=== PATIENT | female | born 1995 | race Caucasian/White ===

== ENCOUNTER 2019-12-03 02:45 | Inpatient (IN) | payer OTHER ==
[2019-12-03] MEDS ORDERED: ELECTROLYTE-148 SOLN 1,000 ML IV SCH (03:40)
[2019-12-03] MEDS ORDERED: AMPICILLIN SODIUM 2 GM VIAL ONE (04:02)
[2019-12-03] MEDS ORDERED: OXYTOCIN 30 UNITS in 0.9% NS 30 UNIT/500 ML INFUS.BAG IVPB ONE (04:02)
[2019-12-03] MEDS ORDERED: AMPICILLIN - 2 GM in SODIUM CHLORIDE 100 ML IVPB ONE (04:06)
[2019-12-03 04:07] LABS: BASO % 0.4 % (0-2.0); EOS % 1.2 % (0-4.5); HEMATOCRIT 43.2 % (32.4-45.2); HEMOGLOBIN 14.5 GM/dL (10.7-15.3); LYMPH % 12.6 % (8-40); MCH 29.3 pg (25.7-33.7); MCHC 33.6 g/dl (32.0-36.0); MEAN CELL VOLUME 87.2 fl (80-96); MEAN PLT VOLUME 7.6 fl (7.5-11.1); MONO % 7.4 % (3.8-10.2); NEUT % 78.4 % (42.8-82.8); PLATELET COUNT 235 K/MM3 (134-434); RBC 4.95 M/mm3 (3.60-5.2); RDW 13.6 % (11.6-15.6); WHITE BLOOD COUNT 12.2 K/mm3 (4.0-10.0)
[2019-12-03] MEDS ORDERED: BUTORPHANOL TARTRATE 1 MG/ML VIAL IVPUSH PRN (04:11)
[2019-12-03] MEDS ORDERED: PROMETHAZINE HCL 25 MG/1 ML VIAL IVPUSH ONE (04:11)
--- NOTE | 2019-12-03 04:14 | PN ---
Progress Note (short form) - Note Progress Note: cx 2 cm 80 vx -2 mr, nitrazine [id number], FHR cat 1, no contraction, advised pitocin stimulation,
--- NOTE | 2019-12-03 04:22 | HP ---
Past Medical History - Primary Care Physician PCP:: Zaki Leo - Admission Chief Complaint: 38 weeks, rom History of Present Illness: 24 yo f [id number] 12/11/19 38.6 c/o ROM , since 1 am today. cx 2 cm , 80 vx -2 MR , fhr cat 1, irregular contraction History Source: Patient Limitations to Obtaining History: No Limitations - Past Medical History ...: 1 ...Para: 0 ...EDC by Dates: 12/13/19 ...EDC by Sono: 12/11/19 - Past Surgical History Hx Myomectomy: No Hx Transabdominal Cerclage: No - Smoking History Smoking history: Never smoked - Alcohol/Substance Use Hx Alcohol Use: No - Social History History of Recent Travel: No Home Medications - Allergies Allergies/Adverse Reactions: Allergies Allergy/AdvReac Type Severity Reaction Status Date / Time coconut Allergy Swelling Verified 10/28/19 16:52 No Known Drug Allergies Allergy Swelling Verified 10/28/19 16:52 shrimp Allergy Swelling Verified 10/28/19 16:52 - Home Medications Home Medications: Ambulatory Orders NK [No Known Home Medication] 09/09/15 Prenat 115/Iron Fum/Folic/Dss [ 19 Tablet] 1 tab PO DAILY 10/28/19 Review of Systems - Review of Systems Constitutional: reports: No Symptoms Eyes: reports: No Symptoms HENT: reports: No Symptoms Neck: reports: No Symptoms Cardiovascular: reports: No Symptoms Respiratory: reports: No Symptoms Gastrointestinal: reports: No Symptoms Genitourinary: reports: No Symptoms Breasts: reports: No Symptoms Reported Musculoskeletal: reports: No Symptoms Integumentary: reports: No Symptoms Neurological: reports: No Symptoms Endocrine: reports: No Symptoms Hematology/Lymphatic: reports: No Symptoms Physical Exam - Maternity Constitutional: Yes: Well Nourished, No Distress, Calm Eyes: Yes: WNL, Conjunctiva Clear, EOM Intact HENT: Yes: WNL, Atraumatic, Normocephalic Neck: Yes: WNL, Supple, Trachea Midline Cardiovascular: Yes: WNL, Regular Rate and Rhythm Breast(s): Yes: WNL - Abdominal Exam/OB Fundal Height: 38 Number of Fetuses: Single Presentation: Vertex Contractions: Yes Regularity: Irregular Intensity: Mild Monitor Mode: External Heart Rate Location: [facility] Category: I Accelerations: Non-Uniform Decelerations: None - Vaginal Exam/OB Vaginal Bleediing: No Speculum Exam: No Dilatation (cm): 2 Effacement (%): 80 Amniotic Membrane Status: Ruptured Nitrazine Test: Positive Amniotic Fluid: Yes: Clear Presentation: Vertex/Position Station: -2 - Physical Exam Edema: Yes Edema: LLE: Trace, RLE: Trace Deep Tendon Reflex Grade: Normal +2 Psychiatric: Yes: WNL - Labs Lab Results: CBC, BMP 12/03/19 03:55 Hemorrhage Risk Assessment - Risk Factors Medium Risk Factors: Yes: None High Risk Factors: Yes: None Risk Score: 1 Risk Level: Medium Risk Problem List - Problems (1) with 38 completed weeks gestation Code(s): Z3A.38 - 38 WEEKS GESTATION OF (2) membrane rupture Code(s): MGV7058 - (3) membrane rupture Code(s): BAF5328 - Assessment/Plan admit FHM GBS positive, iv antibiotics pitocin stimulation , risks and benfit discussed pain management
[2019-12-03 04:26] LABS: INR 0.93 (0.83-1.09)
[2019-12-03 04:29] LABS: ACTIVATED PTT 28.8 SECONDS (25.2-36.5)
[2019-12-03] MEDS ORDERED: OXYTOCIN 30 UNITS in 0.9% NS 30 UNIT/500 ML INFUS.BAG IVPB SCH (04:30)
[2019-12-03] MEDS ORDERED: DEXTROSE 5%-LACTATED RINGERS 1,000 ML IV SCH (04:30)
[2019-12-03 04:32] LABS: BLOOD UREA NITROGEN 8.5 mg/dL (7-18); CALCIUM 8.6 mg/dL (8.5-10.1); CREATININE 0.5 mg/dL (0.55-1.3); POTASSIUM 3.7 mmol/L (3.5-5.1)
[2019-12-03 05:22] VITALS: BMI 32.5
[2019-12-03] MEDS ORDERED: FENTANYL/BUPIVACAINE/NS/PF - PCEA - 50 ML DISP.SYRIN EP ONE (07:56)
[2019-12-03] MEDS ORDERED: NALOXONE HCL 0.4 MG/ML VIAL IVPUSH PRN (08:14)
[2019-12-03] MEDS ORDERED: FENTANYL/BUPIVACAINE/NS/PF - PCEA - 50 ML DISP.SYRIN EP SCH ×2 (08:15→09:57)
[2019-12-03] MEDS ORDERED: BUPIVACAINE HCL/PF 0.25% (2.5MG/ML) 10 ML VIAL ONE (08:16)
[2019-12-03 08:56] LABS: POC NITRAZINE POS
--- NOTE | 2019-12-03 08:56 | PN ---
Progress Note (short form) - Note Progress Note: cx 8 cm 100 vx -1 mr, fhr cat 1, hasepidural regular contraction, comfortable Problem List - Problems (1) with 38 completed weeks gestation Code(s): Z3A.38 - 38 WEEKS GESTATION OF (2) membrane rupture Code(s): GUX2205 - (3) membrane rupture Code(s): IOI8659 -
[2019-12-03] MEDS: AMPICILLIN - 1 GM in SODIUM CHLORIDE 100 ML IVPB SCH ×2 (09:00→12:19)
[2019-12-03] MEDS ORDERED: AMPICILLIN SODIUM 1 GM VIAL ONE (09:18)
[2019-12-03] MEDS ORDERED: OXYTOCIN 20 UNITS in 0.9% NS 20 UNIT/1,000 ML INFUS.BAG IV ONE ×2 (10:58→14:35)
[2019-12-03] MEDS ORDERED: BENZOCAINE 28 GM HEMORRHOIDAL OINTMENT TP PRN (11:28)
[2019-12-03] MEDS ORDERED: BENZOCAINE 20% 57 GM BOTTLE TP PRN (11:28)
[2019-12-03] MEDS ORDERED: WITCH HAZEL 50% (TUCKS) 40 PAD/JAR PAD TP PRN (11:28)
[2019-12-03] MEDS ORDERED: BISACODYL 10 MG SUPP.RECT RC PRN (11:28)
[2019-12-03] MEDS ORDERED: METHYLERGONOVINE MALEATE 0.2 MG/1 ML AMP IM PRN (11:28)
[2019-12-03] MEDS ORDERED: ACETAMINOPHEN 325 MG TABLET (FP) PO PRN (11:28)
[2019-12-03] MEDS ORDERED: IBUPROFEN 600 MG TABLET (FP) PO PRN (11:28)
[2019-12-03] MEDS ORDERED: D5W-LR W/ 20 UNITS OXYTOCIN 20 UNIT/1,000 ML INFUS.BAG IV SCH (11:30)
[2019-12-03] MEDS ORDERED: OXYTOCIN 20 UNITS in 0.9% NS 20 UNIT/1,000 ML INFUS.BAG IV SCH (12:45)
--- NOTE | 2019-12-03 13:53 | PN ---
Delivery - Delivery Vaginal Delivery: Spontaneous (cx fully dilated , head delivered christine position, cord around neck twice ,reduced, ant and posterior shoulder with no difficulty , live baby girl, 9/9, bonded with mom, placenta omplete, median episiotomy in 3 layers with 20 chromic, no complication ,rectal exam negative) Type of Anesthesia: Epidural Episiotomy/Laceration: 1st degree EBL (cc): 300 Delivery, Single - Stages of Labor Date 1st Stage Initiatied: 12/03/19 Time 1st Stage Initiated: 08:00 Date 2nd Stage Initiated: 12/03/19 Time 2nd Stage Initiated: 10:30 Date of Delivery: 12/03/19 Time of Delivery: 11:03 Time Placenta Delivered: 11:05 - 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
[2019-12-03] MEDS: FERROUS SO4 325 MG TABLET (FP) PO SCH (21:51)
[2019-12-04 07:35] LABS: BASO % 0.1 % (0-2.0); EOS % 0.8 % (0-4.5); HEMATOCRIT 32.9 % (32.4-45.2); LYMPH % 12.2 % (8-40); MCH 29.4 pg (25.7-33.7); MCHC 33.4 g/dl (32.0-36.0); MEAN CELL VOLUME 87.9 fl (80-96); MEAN PLT VOLUME 7.6 fl (7.5-11.1); MONO % 7.8 % (3.8-10.2); NEUT % 79.1 % (42.8-82.8); PLATELET COUNT 190 K/MM3 (134-434); RBC 3.75 M/mm3 (3.60-5.2); RDW 13.2 % (11.6-15.6); WHITE BLOOD COUNT 15.2 K/mm3 (4.0-10.0)
--- NOTE | 2019-12-04 09:51 | PN ---
Progress Note (short form) - Note Progress Note: ppd1 s/p , doing well , ambulating , no excess vaginal bleeding CBC, BMP 12/04/19 06:31 12/03/19 03:55 Last Vital Signs Temp Pulse Resp BP Pulse Ox 97.5 F L 99 H 18 117/68 100 12/04/19 06:00 12/04/19 06:00 12/04/19 06:00 12/04/19 06:00 12/03/19 13:35 abdomen soft, no CVA , uterus firm, non tender lochia mild no calf tenderness plan ambulate , plan for d/c home in am Problem List - Problems (1) with 38 completed weeks gestation Code(s): Z3A.38 - 38 WEEKS GESTATION OF (2) membrane rupture Code(s): KBC0110 - (3) membrane rupture Code(s): ANY7528 -
[2019-12-04] MEDS: FERROUS SO4 325 MG TABLET (FP) PO SCH ×2 (10:23→22:14)
[2019-12-04] MEDS: PRENATAL VITAMINS W/ FOLIC ACID TABLET (FP) PO SCH (10:23)
[2019-12-04] MEDS ORDERED: SENNOSIDES/DOCUSATE COMBO (SENNA PLUS) TABLET (UD) PO PRN (22:00)
[2019-12-05] MEDS: FERROUS SO4 325 MG TABLET (FP) PO SCH (10:35)
[2019-12-05] MEDS: PRENATAL VITAMINS W/ FOLIC ACID TABLET (FP) PO SCH (10:35)
--- NOTE | 2019-12-05 10:39 | DS ---
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 No: Uterus non-tender Breast(s): Yes: WNL Musculoskeletal: Yes: WNL Extremities: Yes: WNL Edema: No Integumentary: Yes: WNL Neurological: Yes: WNL, Alert, Oriented ...Motor Strength: WNL Psychiatric: Yes: WNL, Alert, Oriented Labs: CBC, BMP 12/04/19 06:31 12/03/19 03:55 Delivery - Delivery Vaginal Delivery: Spontaneous (cx fully dilated , head delivered christine position, cord around neck twice ,reduced, ant and posterior shoulder with no difficulty , live baby girl, 9/9, bonded with mom, placenta omplete, median episiotomy in 3 layers with 20 chromic, no complication ,rectal exam negative) Type of Anesthesia: Epidural Episiotomy/Laceration: 1st degree EBL (cc): 300 Delivery, Single - Stages of Labor Date 1st Stage Initiatied: 12/03/19 Time 1st Stage Initiated: 08:00 Date 2nd Stage Initiated: 12/03/19 Time 2nd Stage Initiated: 10:30 Date of Delivery: 12/03/19 Time of Delivery: 11:03 Time Placenta Delivered: 11:05 Placenta: Yes: Spontaneous - 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 Infant 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 Infant Gender: Male Weight: 6 lb 8 oz Position: Left, OA Total Hours ROM (Hrs/Mins): 10Hrs/5Mins - 1 Minute Total Score: 9 5 Minutes Total Score: 9 - Feeding Plan Initial Plan: Elected not to breastfeed exclusively throughout hospitalization Discharge Summary Reason For Visit: LABOR Current Active Problems membrane rupture (Acute) membrane rupture (Acute) with 38 completed weeks gestation (Acute) Procedures: Principal: Other Procedures: first degree repair Hospital Course: no complication Health Concerns: obesity Plan of Treatment: low carb diet, exercise Goals: BMI 20 Condition: Good - Instructions Diet, Activity, Other Instructions: regular diet, no intercourse , follow up [facility] care 4 weeks, if fever, heavy vaginal bleeding, pain call md Referrals: Zaki Leo MD [Staff Physician] - Disposition: HOME - Home Medications Comprehensive Discharge Medication List: Ambulatory Orders Ferrous Sulfate [Iron] 1 tab PO DAILY 12/03/19 Prenat 115/Iron Fum/Folic/Dss [ 19 Tablet] 1 tab PO DAILY 12/03/19 Ibuprofen [Motrin -] 600 mg PO QID #28 tablet 12/04/19
[2019-12-05 13:42] VITALS: BP 114/64; PULSE 73; TEMP 99
== END 2019-12-05 17:15 | disposition home or self-care (01) | DRG 560 ==
LOC: JLDR 02:45 → J3W 14:35
PROVIDERS: ADMIT Obstetrics & Gynecology; ATTEND Obstetrics & Gynecology
PROC: 10E0XZZ Delivery of Products of Conception, External Approach (ICD-10-PCS; principal; 2019-12-03)
PROC: 0HQ9XZZ Repair Perineum Skin, External Approach (ICD-10-PCS; 2019-12-03)
PROC: 0W8NXZZ Division of Female Perineum, External Approach (ICD-10-PCS; 2019-12-03)
DX: O70.0 First degree perineal laceration during delivery (principal); Z3A.38 38 weeks gestation of pregnancy; Z22.330 Carrier of Group B streptococcus; Z37.0 Single live birth
CPT/HCPCS: 36415; 36600; 59409; 80048; 82803; 83986-QW; 85025; 85610; 85730; 86593; 86850; 86900; 86901; 87389